=== PATIENT | female | born 1950 | race Caucasian/White ===

== ENCOUNTER 2022-12-30 20:38 | Emergency (ER) | payer MEDICARE ==
[~2022-12-30] VITALS: Ht 165.1 cm; Wt 81.6 kg
[2022-12-30 21:00] VITALS: BP_SYST 126; PULSE 120; RESP 18; TEMP 97.9; O2SAT 96
--- NOTE | 2022-12-30 21:00 | NUR ---
Placed in room 8 . Placed on engine monitor, blood pressure machine and pulse oximeter. To gown for exam. Side rails up. Report given to MINI BRUNO.
--- NOTE | 2022-12-30 21:05 | NUR ---
Pt bib ambulance from home. c/o weakness. EMT reported wellness check was called on pt. Pt was found on floor. Pt states to have lost her balance and wasnt able to get back up. No LOC. No visible lacerations found upon assessment. Pt AAOX3. Follows commands. Pt VSS. Pt skin dry and intact. Pt cleaned with wash cloth and placed in clean gown. Pt in bed with side rails up. Addendum: 12/30/22 at 2233 by [email or web address] pt denies SOB. Pt denies N/V/D. Pt denies pain. Pt has full ROM of bilateral legs and bilateral arms. RR even and unlabored. JUANRROCIO.
--- NOTE | 2022-12-30 21:23 | NUR ---
ER at bedside examining patient.
[2022-12-30] MEDS ORDERED: NACL 0.9% 1,000 ML IV ONE (21:30)
--- NOTE | 2022-12-30 21:40 | NUR ---
# 20 gauge angiocath placed to R HAND. Use of asceptic technique. Opsite placed over site. Blood return noted. Blood for lab drawn from site. Flushed with 10 cc of normal saline. No evidence of infiltration noted. Patient tolerated well.
--- NOTE | 2022-12-30 21:45 | NUR ---
Pt daughter at bedside.
--- NOTE | 2022-12-30 22:01 | NUR ---
Patient transported to radiology via GURNEY, accompanied by TORRES.
[2022-12-30 22:07] LABS: BASOPHILS # (AUTO) 0.1 K/uL (0.0-0.2); BASOPHILS % (AUTO) 0.9 % (0.0-2.0); HEMATOCRIT 35.7 % (36-48); LYMPHOCYTES % (AUTO) 0.2 % (20.5-51.5); MEAN CORPUSCULAR HEMOGLOBIN 29 pg (27-31); MEAN CORPUSCULAR HGB CONC 34 % (32-36); MEAN CORPUSCULAR VOLUME 88 fL (79.0-98.0); MONOCYTES # (AUTO) 0.3 K/uL (0.0-1.0); MONOCYTES % (AUTO) 2.7 % (1.7-9.3); NEUTROPHILS # (AUTO) 10.5 K/uL (1.8-7.7); NEUTROPHILS % (AUTO) 96.2 % (40.0-70.0); PLATELET COUNT (AUTO) 193 K/uL (130-430); RED BLOOD CELL COUNT(AUTO) 4.07 MIL/uL (4.2-6.2); RED CELL DISTRIBUTION WIDTH 14.7 % (9.0-15.0); WHITE BLOOD COUNT (AUTO) 10.9 K/uL (4.8-10.8)
[2022-12-30 22:22] LABS: INR 1.1 (0.8-1.2); PROTHROMBIN TIME 11.2 SECS (9.5-12.5)
[2022-12-30 22:24] LABS: ALANINE AMINOTRANSFERASE 13 U/L (12-78); ALBUMIN 3.1 g/dL (3.4-4.8); ANION GAP 11 (5-15); ASPARTATE AMINOTRANSFERASE 20 U/L (10-37); CALCIUM 9.2 mg/dL (8.4-11.0); CHLORIDE 97 mmol/L (98-107); CREATININE 0.73 mg/dL (0.55-1.30); GFR AFRICAN AMERICAN 101 mL/min (>90); GLUCOSE 226 mg/dL (74-106); TOTAL BILIRUBIN 0.6 mg/dL (0.0-1.0); UREA NITROGEN, BLOOD 21 mg/dL (8-21)
[2022-12-30 22:26] LABS: PHOSPHORUS 4.3 mg/dL (2.7-4.5)
[2022-12-30 22:28] LABS: BILIRUBIN,URINE NEGATIVE (NEGATIVE); BLOOD, URINE 2+ (NEGATIVE); COLOR,URINE YELLOW (YELLOW); GLUCOSE,URINE NEGATIVE (NEGATIVE); KETONES,URINE TRACE (NEGATIVE); LEUKOCYTE ESTERASE ,URINE 1+ (NEGATIVE); NITRITE, URINE POSITIVE (NEGATIVE); PH,URINE 5.5 (5.0-8.0); PROTEIN URINE 2+ (NEGATIVE); UROBILINOGEN,URINE 0.2 (0.2-1.0)
[2022-12-30 22:30] LABS: ALCOHOL, BLOOD < 3 mg/dL (<10)
[2022-12-30 22:32] LABS: CLARITY/URINE HAZY (CLEAR)
[2022-12-30 22:35] LABS: BACTERIA,URINE MODERATE /HPF (None Seen); MUCUS,URINE None Seen /LPF (None Seen)
[2022-12-30 22:47] LABS: BARBITURATE, URINE NEGATIVE (NEG <=200); BENZODIAZEPINE, URINE NEGATIVE (NEG <=150); CANNABINOID, URINE NEGATIVE (NEG <=50); COCAINE, URINE NEGATIVE (NEG <=150); METHAMPHETAMINES SCREEN,URINE NEGATIVE (NEG <=500); OPIATE, URINE NEGATIVE (NEG <=100); PHENCYCLIDINE SCREEN,URINE NEGATIVE (NEG <=25); UR TRICYCLIC ANTIDEPRESSANTS NEGATIVE (NEG <=300); URINE AMPHETAMINE NEGATIVE (NEG <=500); URINE METHADONE NEGATIVE (NEG <=200); URINE OXYCODONE SCREEN NEGATIVE (NEG <=100); URINE PROPOXYPHENE SCREEN NEGATIVE (NEG <=300)
--- NOTE | 2022-12-30 22:55 | NUR ---
pt glucose check 217. MD notifed
[2022-12-30] MEDS ORDERED: cefTRIAXone 1 GM IVPB PREMIX 50 ML IV ONE (23:00)
[2022-12-31] MEDS ORDERED: MAGNESIUM SULFATE 50 ML IV ONE (00:30)
[2022-12-31] MEDS ORDERED: ACETAMINOPHEN 500 MG TABLET PO ONE (00:30)
--- NOTE | 2022-12-31 01:12 | NUR ---
pt in bed resting with eyes closed. pt daughter at bedside. lights turned off for comfort.
--- NOTE | 2022-12-31 02:30 | NUR ---
Pt resting in bed with eyes closed. vss. temp 98. daughter at bedside
--- NOTE | 2022-12-31 04:29 | NUR ---
Patient to be transferred to [facility]. Is being transferred due to higher level of care. Receiving facility has accepting physician and available space. ER physician has signed transfer form. Patient or responsible constitution party has agreed to transfer and signed form. Patient belongings inventoried and will be sent with patient. Copy of nursing notes, lab reports, EKG, Physicians Orders and X-rays to be sent with patient. Report called to [facility] at receiving facility. Receiving physician is DR. MCNEIL. [facility] ambulance service has been called for transfer. ETA is 45 MIN.
[2022-12-31] MEDS ORDERED: Effexor 37.5 MG TAB PO ONE (04:45)
[2022-12-31] MEDS ORDERED: Effexor 37.5 MG TAB ONE (05:09)
[2022-12-31 05:42] VITALS: BP_SYST 105; PULSE 98; RESP 15; TEMP 98.3; O2SAT 95
== END 2022-12-31 04:29 | disposition admitted as inpatient to this hospital (09) ==
LOC: SED 20:38
DX: R41.82 Altered mental status, unspecified (principal); N39.0 Urinary tract infection, site not specified; R50.9 Fever, unspecified; E11.65 Type 2 diabetes mellitus with hyperglycemia; R73.9 Hyperglycemia, unspecified; I10 Essential (primary) hypertension; Z79.899 Other long term (current) drug therapy; Z20.822 Contact with and (suspected) exposure to COVID-19
CPT/HCPCS: 99291; 70450; 71045; 96367; 96361; 87426; 80307; 80053; 82140; 82550; 82962; 83735; 84100; 85025; 85610; 85730; 87040; 87086; 84484; 36415; 93005; 76376; 83605; 81000; 96365; 96366; J0696; J7030; J3475; G0482

== ENCOUNTER 2023-11-13 13:33 | Emergency (ER) | payer MEDICARE ==
[~2023-11-13] VITALS: Ht 170.2 cm; Wt 72.6 kg
[2023-11-13 13:37] VITALS: BP_SYST 125; PULSE 85; RESP 18; TEMP 98.3; O2SAT 98
[2023-11-13] MEDS: FAMOTIDINE PF 20 MG/2 ML VIAL IVP ONE (14:25)
[2023-11-13] MEDS: methylPREDNISolone SOD SUCC/PF 62.5 MG/ML VIAL IVP ONE (14:25)
[2023-11-13] MEDS ORDERED: METH-776 PO (15:57)
[2023-11-13] MEDS ORDERED: FAMO40TA71 PO (15:57)
[2023-11-13] MEDS ORDERED: FEXO180T94 PO (15:57)
[2023-11-13] MEDS ORDERED: EPIN0.3P3 IM (15:57)
[2023-11-13 16:20] VITALS: BP_SYST 108; PULSE 90; RESP 18; TEMP 97; O2SAT 95
== END 2023-11-13 16:23 | disposition home or self-care (01) ==
LOC: SED 13:33
DX: L50.9 Urticaria, unspecified (principal); T50.995A Adverse effect of other drugs, medicaments and biological substances, initial encounter; R22.0 Localized swelling, mass and lump, head; Y92.89 Other specified places as the place of occurrence of the external cause; E11.9 Type 2 diabetes mellitus without complications; I10 Essential (primary) hypertension
CPT/HCPCS: 99284; 96374; 96375; J3490; J2930